=== PATIENT | male | born 1980 | race Caucasian/White ===

== ENCOUNTER 2017-05-12 19:20 | Emergency (ER) | payer BC, OTHER ==
[~2017-05-12] VITALS: Ht 177.8 cm; Wt 84.0 kg
[~2017-05-12 19:20] MED LIST: Z.0.NO CURRENT MEDS
[2017-05-12] MEDS ORDERED: PROPARACAINE HCL 0.5% OPHT SOLN 15 ML BTL LEFT EYE ONE (19:30)
--- NOTE | 2017-05-12 20:02 | PD ---
HPI Chief Complaint: Eye Problems/Injury Time Seen by Provider: 19:30 Travel History International Travel<30 days: No Contact w/Intl Traveler<30days: No Traveled to known affect area: No History of Present Illness HPI 36-year-old male presents to the emergency department by private transportation the care of his family for evaluation of left eye pain. Patient is concerned that he has retained glass fragment in his left eye. Patient does not use corrective lenses. Patient states that approximately 5 PM this afternoon a thin walled drinking glass fell onto the floor and patient did not experience any injury or pain at that time. Patient states subsequently shortly thereafter he was sweeping up the broken glass with a broom but there was a fan nearby and he is not certain but he thinks perhaps a piece of glass may have been blown into his eye but not while sweeping up debris. Sometime thereafter he started to experience a foreign body sensation but states he did not experience immediate foreign body sensation while he was sweeping or when he was exposed to the glass that was being swept. Patient states that at one time he thinks that he pulled a piece of glass out of his eye he states he put it in his mouth to chew on it to see if it would crunch and in fact something could crunch. Tetanus status is current per the patient. Patient is not diabetic. Patient is only allergic to penicillin. PFSH Social History Alcohol Use: Yes (SOCIAL) Tobacco Use: No Allergies-Medications (Allergen,Severity, Reaction): Coded Allergies: penicillin G (Unverified Allergy, Mild, 05/12/17) Reported Meds & Prescriptions Reported Meds & Active Scripts Active Erythromycin Opth Oint 5 Mg/Gm Oint 1 Applic LEFT EYE BID Reported No Current Meds (Miscellaneous Medication) [facility] [place] Review of Systems Except as stated in HPI: all other systems reviewed are Neg General / Constitutional: No: Fever, Chills Eyes: Positive: Blurred Vision, Drainage, Foreign Body Sensation, Pain, Tearing , No: Diploplia, Photophobia HENT: No: Headaches Cardiovascular: No: Chest Pain or Discomfort Respiratory: No: Shortness of Breath Gastrointestinal: No: Nausea Genitourinary: No: Flank Pain Musculoskeletal: No: Myalgias, Arthralgias Skin: No Rash Psychiatric: No: Anxiety Endocrine: No: Heat Intolerance Hematologic/Lymphatic: No: Easy Bruising Physical Exam Narrative GENERAL: SKIN: Warm and dry. HEAD: Normocephalic. EYES: No scleral icterus. Left eye with injection tearing drainage chemosis and visible corneal abrasion; no visualized foreign body on direct inspection and with attempted lid eversion however due to marked soft tissue swelling of the upper lid with inversion is incomplete; 3 areas of fluorescein uptake and superficial epithelial wedge-shaped flap is noted; no irregularity of the pupil which is round and reactive to light no gross blood no gross hyphema. NECK: Supple, trachea midline. No JVD or lymphadenopathy. CARDIOVASCULAR: Regular rate and rhythm without murmurs, gallops, or rubs. RESPIRATORY: Breath sounds equal bilaterally. No accessory muscle use. Data Data Last Documented VS Vital Signs Date Time Temp Pulse Resp B/P (MAP) Pulse Ox O2 Delivery O2 Flow Rate FiO2 05/12/17 23:43 05/12/17 23:08 86 18 97 Room Air 05/12/17 20:56 98.5 Orders Orders Proparacaine 0.5% Opth Soln (Alcaine 0.5 (05/12/17 19:30) Ct Facial Bones W/O Iv Cont (05/12/17 ) Tetanus/Diphtheria Tox Adult (Tetanus/Di (05/12/17 21:15) Erythromycin 0.5% Opth Oint (Ilotycin 0. (05/12/17 23:15) Acetaminophen (Tylenol) (05/12/17 23:15) MDM Medical Decision Making Medical Screen Exam Complete: Yes Emergency Medical Condition: Yes Medical Record Reviewed: Yes Interpretation(s) Vital Signs Date Time Temp Pulse Resp B/P (MAP) Pulse Ox O2 Delivery O2 Flow Rate FiO2 05/12/17 20:56 98.5 83 18 158/62 (94) [address] facial w/o contrast attn left globe: FINDINGS: There is left orbital preseptal soft-tissue swelling. No radiopaque foreign body is identified. The globes are intact bilaterally. The orbits are unremarkable bilaterally. There is no facial bone fracture. Mild mucosal thickening is noted involving the bilateral ethmoid and maxillary sinuses as well as to a lesser extent the sphenoid sinuses bilaterally. There is evidence of obstruction of the ostiomeatal complexes bilaterally. CONCLUSION: 1. No radiopaque foreign body within the left orbit. 2. Left orbital preseptal soft-tissue swelling. 3. Mucosal thickening involving the ethmoid air cells, maxillary sinuses and to a lesser extent the sphenoid sinuses bilaterally. 4. No facial bone fracture identified. 5. Obstruction of the ostiomeatal complexes bilaterally. Pete Leigh MD on May 12, 2017 at 20:43 Differential Diagnosis Retained radiopaque foreign body, globe injury, puncture wound, corneal abrasion , corneal laceration, eyelid laceration Narrative Course Fluorescein stain with with lamp performed no obvious irregularity of the pupil or globe and no obvious Mary sign; gentle irrigation with saline performed; CT ordered; no ophthalmology on-call at this facility Patient returns from CT continues to complain of pain in the left eye with foreign body sensation additional drop of proparacaine administered to the left eye again some gentle irrigation again no obvious noted stranding for concern for Mary sign; CT scan noncontrast per reading radiologist is read as no radiopaque foreign body within the left orbit left orbit preseptal soft tissue swelling mucosal thickening involving the ethmoidal cells maxillary sinuses to lesser extent the sphenoid sinuses bilaterally no facial bone fracture obstruction of the ostiomeatal complexes bilaterally; tetanus status updated as now reports he thinks tetanus was about 9 years ago. Call placed to [facility] to transfer center After informed verbal consent linear probe was used to examine the left globe - - globe appeared intact and no FB was noted Visual acuity right eye 20/70 -2 and left eye 20/100 -1 Physician Communication Physician Communication call placed to ophthalmology fabrication department supervisor for [facility] -- informed/confirmed Dr Smith fabrication department supervisor for ophthalmology --- no call back via transfer line; call placed to [facility]: transfer line Elian--Dr Liang Webber [phone] [address] [facility] --call office to be seen in the AM --strart on erythromycin ointmernt BID and tylenol Diagnosis Primary Impression: Corneal abrasion, left Qualified Codes: S05.02XA - Injury of conjunctiva and corneal abrasion without foreign body, left eye, initial encounter Referrals: Manager [employer] [address] Liang Webber [facility] decision science analyst [phone] [address] [facility] Patient Instructions: General Instructions Departure Forms: Tests/Procedures, Work Release Special Instructions: no work x 2 days Additional Instructions: May apply cool compresses intermittently over left eye wear eye shield while sleeping Use eye ointment as prescribed May take Tylenol or ibuprofen per package instructions as needed for pain or for fever 100.4 days Fahrenheit or greater Follow-up with decision science analyst--available through consultation is Dr. Liang Webber Return to the emergency department for any concerns or change in condition Do not rub your left eye Med/Other Pt SpecificInfo: Prescription(s) given Scripts Erythromycin Opth Oint (Erythromycin Opth Oint) 5 Mg/Gm Oint 1 APPLIC LEFT EYE BID for Infection, #1 TUBE 0 Refills Prov: Hali Enriquez MD 05/12/17 Disposition: 01 DISCHARGE HOME Condition: Stable Hali Enriquez MD May 12, 2017 20:02
--- NOTE | 2017-05-12 20:53 | RADRPT ---
EXAM DATE/TIME: 05/12/2017 20:18 [place] COMPARISON: No previous studies available for comparison. INDICATIONS : Left eye pain. Evaluate for glass in eye. RADIATION DOSE: 29.94 CTDIvol (mGy) MEDICAL HISTORY : None SURGICAL HISTORY : None. ENCOUNTER: Initial ACUITY: 1 day PAIN SCORE: 4/10 LOCATION: Left eye TECHNIQUE: Volumetric scanning of the facial bones was performed. Using automated exposure control and adjustme nt of the mA and/or kV according to patient size, radiation dose was kept as low as reasonably achiev able to obtain optimal diagnostic quality images. DICOM format image data is available electronicall y for review and comparison. FINDINGS: There is left orbital preseptal soft-tissue swelling. No radiopaque foreign body is identified. The globes are intact bilaterally. The orbits are unremarkable bilaterally. There is no facial bone fr acture. Mild mucosal thickening is noted involving the bilateral ethmoid and maxillary sinuses as we ll as to a lesser extent the sphenoid sinuses bilaterally. There is evidence of obstruction of the o stiomeatal complexes bilaterally. CONCLUSION: 1. No radiopaque foreign body within the left orbit. 2. Left orbital preseptal soft-tissue swelling. 3. Mucosal thickening involving the ethmoid air cells, maxillary sinuses and to a lesser extent the s phenoid sinuses bilaterally. 4. No facial bone fracture identified. 5. Obstruction of the ostiomeatal complexes bilaterally. Pete Leigh MD on May 12, 2017 at 20:43 Board Certified Radiologist. This report was verified electronically.
[2017-05-12 20:56] VITALS: BP 158/62; PULSE 83; RESP 18; TEMP 98.5; O2SAT 96
[2017-05-12] MEDS ORDERED: TETANUS/DIPHTHERIA TOXOID ADULT 0.5 ML VIAL IM ONE (21:15)
[2017-05-12 23:08] VITALS: BP 152/94; PULSE 86; RESP 18; O2SAT 97
[2017-05-12] MEDS ORDERED: ERYTOIN10 LEFT EYE (23:09)
[2017-05-12] MEDS ORDERED: ERYTHROMYCIN 0.5% OPTH OINT 3.5 GM TUBO LEFT EYE ONE (23:15)
[2017-05-12] MEDS ORDERED: ACETAMINOPHEN 325 MG TAB PO ONE (23:15)
== END 2017-05-12 23:44 | disposition home or self-care (01) ==
LOC: PHED 19:20
DX: S05.02XA Injury of conjunctiva and corneal abrasion without foreign body, left eye, initial encounter (principal); X58.XXXA Exposure to other specified factors, initial encounter; Z23 Encounter for immunization
CPT/HCPCS: 70486; 90471; 90714